=== PATIENT | male | born 1990 | race African-American/Black ===

== ENCOUNTER 2017-09-01 23:50 | Emergency (ER) | payer BC ==
[~2017-09-01] VITALS: Ht 182.9 cm; Wt 81.6 kg
[2017-09-02 01:13] VITALS: BP 124/79
== END 2017-09-02 01:19 | disposition home or self-care (01) ==
LOC: ER 23:50
DX: R42 Dizziness and giddiness (principal); F19.180 Other psychoactive substance abuse with psychoactive substance-induced anxiety disorder
CPT/HCPCS: 99282